=== PATIENT | male | born 2000 | race Hispanic/Latino ===

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

== ENCOUNTER 2018-02-02 01:28 | Emergency (ER) | payer SELFPAY ==
[~2018-02-02 01:28] MED LIST changes: +HALO2TAB PO; +OLAN7.5T9 PO
--- OUTSIDE RECORDS SUMMARY | 2018-02-02 01:32 | XMS REPORT ---
Author Author MACIE ADIS [address] Address [address] [place] [address] Care Team Providers Care Outpatient Admitting Clerk Name Role Phone ELICEO QUIJANOCARLIE Unavailable PROBLEMS Type Condition ICD9-CM Code [id number] Code Onset Dates Condition Status SNOMED Code Problem Schizophreniform disorder F20.81 Active 54481114 Problem Cannabis abuse F12.10 Active [id number] ALLERGIES No Information ENCOUNTERS Encounter Location Date Diagnosis [place] [id number] [address] Aug, [place] [address] [address] Aug, [facility] [address] [address] Jul, Schizophreniform disorder F20.81 [facility] [address] [address] Jul, Schizophreniform disorder F20.81 [facility] [address] [place] [id number] [place] [phone] Jul, [facility] [address] [place] [id number] [place] [id number] Jul, Schizophreniform disorder F20.81 and Cannabis abuse F12.10 [facility] [address] [address] 08 Jul, 2017 Schizophreniform disorder F20.81 and Cannabis abuse F12.10 [facility] [address] [place] [id number] [place] [id number] Jul, [facility] [address] [id number] Jul, [facility] [id number] [place] [phone] Jun, Schizophreniform disorder F20.81 and Cannabis abuse F12.10 [facility] [address] [place] [id number] [place] [phone] Feb, Schizophreniform disorder F20.81 and Cannabis abuse F12.10 [facility] [address] [address] Jan, Schizophreniform disorder F20.81 and Cannabis abuse F12.10 [facility] [address] [place] [id number] [place] [phone] Jan, Schizophreniform disorder F20.81 and Cannabis abuse F12.10 [facility] [address] [place] [id number] [place] [id number] Jun, Nipple pain N64.4 [facility] [address] [place] [id number] [place] [id number] Apr, Sports physical Z02.5 ; Exercise counseling Z71.89 and Dietary counseling Z71.3 [facility] [address] [place] [id number] [place] [id number] Feb, Abdominal cramping R10.9 and Nausea R11.0 [facility] [address] [place] [id number] [place] [phone] Jun, [facility] [address] [place] [id number] [place] [phone] Jan, [facility] [address] [place] [id number] [place] [phone] Jun, [place] [address] [address] Apr, [facility] [address] [place] [id number] [place] [phone] May, IMMUNIZATIONS No Known Immunizations SOCIAL HISTORY Never Assessed REASON FOR VISIT PALS IN-[place]ve[place] 156 PLAN OF CARE VITAL SIGNS MEDICATIONS Unknown Medications RESULTS No Results PROCEDURES No Known procedures INSTRUCTIONS MEDICATIONS ADMINISTERED No Known Medications MEDICAL (GENERAL) HISTORY Type Description Date Medical History Schizophreniform Disorder Medical History Psychosocial Factors, Occupational Related Medical History Suicidal Ideation Medical History Psychosis Medical History Hallucinations Medical History THC Use Disorder Medical History Intermittent Agitation Medical History [place] Hospitalization History [facility] Unit for Psychosis and SI 2016 Hospitalization History [facility] for psych stay 06/19/17-06/23/17 Hospitalization History [facility] 08/03/2017
--- OUTSIDE RECORDS SUMMARY | 2018-02-02 01:33 | XMS REPORT ---
Author Author RAVINDER KURT [facility] Address [address] [place] [address] Care Team Providers Care Rn Faculty Name Role Phone RAVINDERKURT Unavailable PROBLEMS Type Condition ICD9-CM Code KAI04-AO Code Onset Dates Condition Status SNOMED Code Problem Schizophreniform disorder F20.81 Active 12302443 Problem Cannabis abuse F12.10 Active 23018686 ALLERGIES Substance Reaction Event Type Date Status Penicillin G Sodium Unknown Drug Allergy Jul, Active ENCOUNTERS Encounter Location Date Diagnosis [facility] [id number] [place] [address] [phone] Aug, [facility] [id number] [place] [address] [phone] Aug, [facility] [id number] [place] [address] 78933- 3037 Jul, Schizophreniform disorder F20.81 [facility] [id number] [place] [address] [phone]- 3610 Jul, Schizophreniform disorder F20.81 [facility] [id number] [place] [address] 97740- [phone] Jul, [facility] [id number] [place] [address] 21023- 9562 Jul, Schizophreniform disorder F20.81 and Cannabis abuse F12.10 [facility] [address] 55414- 3482 08 Jul, 2017 Schizophreniform disorder F20.81 and Cannabis abuse F12.10 [facility] [id number] [place] [address] [phone] 2017 [facility] [id number] [place] [address] [phone] Jul, [facility] [id number] [place] [address] 13725- 1073 Jun, Schizophreniform disorder F20.81 and Cannabis abuse F12.10 [facility] [id number] [place] [address] 49206- 7827 Feb, Schizophreniform disorder F20.81 and Cannabis abuse F12.10 [facility] [id number] [place] [address] 31427- 3222 Jan, Schizophreniform disorder F20.81 and Cannabis abuse F12.10 [place] [address] [phone] Jan, Schizophreniform disorder F20.81 and Cannabis abuse F12.10 [facility] [id number] [place] [address] [phone] Jun, Nipple pain N64.4 [facility] [id number] [place] [address] [id number] Apr, Sports physical Z02.5 ; Exercise counseling Z71.89 and Dietary counseling Z71.3 [facility] [id number] [place] [address] [phone] Feb, Abdominal cramping R10.9 and Nausea R11.0 [facility] [id number] [place] [address] [phone]- [phone] Jun, [facility] [id number] [place] [address] [phone]- [phone] Jan, [facility] [id number] [place] [address] [phone]- [phone] Jun, [facility] [id number] [place] [address] [phone]- [phone] Apr, [facility] [id number] [place] [address] [phone]- [phone] May, IMMUNIZATIONS Vaccine Route Administration Date Status INVEGA (PT'S OWN) IM Intramuscular Aug 14, 2017 Administered SOCIAL HISTORY Never Assessed REASON FOR VISIT f/u PLAN OF CARE Activity Details Follow Up 1 Week Reason: f/u VITAL SIGNS Height 65 in 2017-08-14 Weight 156.9 lbs 2017-08-14 Heart Rate 64 bpm 2017-08-14 Respiratory Rate 20 2017-08-14 BMI 26.11 kg/m2 2017-08-14 Blood pressure systolic 130 mmHg 2017-08-14 Blood pressure diastolic 78 mmHg 2017-08-14 MEDICATIONS Medication Instructions Dosage Frequency Start Date End Date Duration Status Invega Sustenna 156 MG/ML Intramuscular one time 1.5 ml Jul, 30 day(s) Active RESULTS No Results PROCEDURES Procedure Date Ordered Result Body Site INVEGA (PT'S OWN) Aug 14, 2017 THER/PROPH/DIAG INJ, SC/IM Aug 14, 2017 INSTRUCTIONS MEDICATIONS ADMINISTERED No Known Medications MEDICAL (GENERAL) HISTORY Type Description Date Medical History Schizophreniform Disorder Medical History Psychosocial Factors, Occupational Related Medical History Suicidal Ideation Medical History Psychosis Medical History Hallucinations Medical History THC Use Disorder Medical History Intermittent Agitation Medical History [place] Hospitalization History [facility] Unit for Psych[facility] and SI 2016 [facility]17 Hospitalization History [facility] 08/03/2017
--- OUTSIDE RECORDS SUMMARY | 2018-02-02 01:33 | XMS REPORT ---
Author Author RAVINDER KURT [facility] Address [address] [place] [address] Care Team Providers Care Security Team Lead Name Role Phone RAVINDERKURT Unavailable PROBLEMS Type Condition ICD9-CM Code AJC90-VR Code Onset Dates Condition Status SNOMED Code Problem Schizophreniform disorder F20.81 Active 89126579 Problem Cannabis abuse F12.10 Active 87001611 ALLERGIES Substance Reaction Event Type Date Status Penicillin G Sodium Unknown Drug Allergy Jun, Active ENCOUNTERS Encounter Location Date Diagnosis [facility] [id number] [place] [address] 23819- 5865 Aug, [facility] [id number] [place] [address] 64318- [phone] Aug, [facility] [id number] [place] [address] 02427- 8103 Jul, Schizophreniform disorder F20.81 [facility] [id number] [place] [address] 66304- 6471 Jul, Schizophreniform disorder F20.81 [facility] [id number] [place] [address] 89497- [phone] Jul, [facility] [id number] [place] [address] 87507- 4343 Jul, Schizophreniform disorder F20.81 and Cannabis abuse F12.10 [facility] [id number] [place] [address] 50145- [phone] 08 Jul, 2017 Schizophreniform disorder F20.81 and Cannabis abuse F12.10 [facility] [id number] [place] [address] [id number] 2017 [facility] [place] [id number] [place] [address] [phone] Jul, [facility] [id number] [place] [address] 27542- 5802 Jun, Schizophreniform disorder F20.81 and Cannabis abuse F12.10 [facility] [id number] [place] [address] 21099- 2064 Feb, Schizophreniform disorder F20.81 and Cannabis abuse F12.10 [facility] [id number] [place] [address] 12102- 8985 Jan, Schizophreniform disorder F20.81 and Cannabis abuse F12.10 [facility] [address] 38385- 8776 Jan, Schizophreniform disorder F20.81 and Cannabis abuse F12.10 [facility] [address] [phone] Jun, Nipple pain N64.4 [facility] [id number] [place] [address] [phone] Apr, Sports physical Z02.5 ; Exercise counseling Z71.89 and Dietary counseling Z71.3 [facility] [id number] [place] [address] [phone] Feb, Abdominal cramping R10.9 and Nausea R11.0 [facility] [id number] [place] [address] 68394- 7374 Jun, [facility] [id number] [place] [address] [phone]- [phone] Jan, [facility] [id number] [place] [address] [phone]- [phone] Jun, [facility] [id number] [place] [address] 59425- [phone] Apr, [facility] [id number] [place] [address] [phone]- [phone] 18 Dec, 2003 IMMUNIZATIONS No Known Immunizations SOCIAL HISTORY Never Assessed REASON FOR VISIT f/u Dylan PLAN OF CARE Activity Details Follow Up 1 Week Reason: f/u VITAL SIGNS Height 65 in 2017-07-06 Weight 155.6 lbs 2017-07-06 Heart Rate 80 bpm 2017-07-06 Respiratory Rate 20 2017-07-06 BMI 25.89 kg/m2 2017-07-06 Blood pressure systolic 120 mmHg 2017-07-06 Blood pressure diastolic 80 mmHg 2017-07-06 MEDICATIONS Medication Instructions Dosage Frequency Start Date End Date Duration Status Risperidone 2 MG Orally at bedtime 1 tablet Active RESULTS No Results PROCEDURES No Known procedures INSTRUCTIONS MEDICATIONS ADMINISTERED No Known Medications MEDICAL (GENERAL) HISTORY Type Description Date Medical History Schizophreniform Disorder Medical History Psychosocial Factors, Occupational Related Medical History Suicidal Ideation Medical History Psychosis Medical History Hallucinations Medical History THC Use Disorder Medical History Intermittent Agitation Medical History [place] Hospitalization History [facility] Unit for Psychosis and SI 2016 Hospitalization History [facility] for psych stay 06/19/17-06/23/17 Hospitalization History [facility] 08/03/2017
--- OUTSIDE RECORDS SUMMARY | 2018-02-02 01:33 | XMS REPORT ---
Author Author ADIS QUIJANO [facility] Address [address] [place] [address] Care Team Providers Care Quality Compliance Manager Name Role Phone ELICEO QUIJANOCARLIE Unavailable PROBLEMS Type Condition ICD9-CM Code LAH91-CO Code Onset Dates Condition Status SNOMED Code Problem Schizophreniform disorder F20.81 Active 62990010 Problem Cannabis abuse F12.10 Active 11970926 ALLERGIES No Information ENCOUNTERS Encounter Location Date Diagnosis [facility] [id number] [place] [address] [phone]- [phone] Aug, [facility] [address] 01160- 1855 Aug, [facility] [address] 58060- 0154 Jul, Schizophreniform disorder F20.81 [facility] [address] 36169- 3721 Jul, Schizophreniform disorder F20.81 [facility] [id number] [place] [address] 09207- 5934 Jul, [facility] [id number] [place] [address] 02132- 2023 Jul, Schizophreniform disorder F20.81 and Cannabis abuse F12.10 [facility] [address] 42609- 3601 08 Jul, 2017 Schizophreniform disorder F20.81 and Cannabis abuse F12.10 [facility] [address] [id number] Jul, [facility] [address] [id number] Jul, [facility] [id number] [place] [address] 33742- 2941 Jun, Schizophreniform disorder F20.81 and Cannabis abuse F12.10 [facility] [id number] [place] [address] 40985- 2976 Feb, Schizophreniform disorder F20.81 and Cannabis abuse F12.10 [facility] [address] 30686- 0753 Jan, Schizophreniform disorder F20.81 and Cannabis abuse F12.10 [facility] [id number] [place] [address] 14969- 8233 Jan, Schizophreniform disorder F20.81 and Cannabis abuse F12.10 [facility] [place] [id number] [place] [address] [phone] Jun, Nipple pain N64.4 [facility] [place] [address] [id number] Apr, Sports physical Z02.5 ; Exercise counseling Z71.89 and Dietary counseling Z71.3 [facility] [place] [id number] [place] [address] [phone] Feb, Abdominal cramping R10.9 and Nausea R11.0 [facility] [id number] [place] [address] 94448- [phone] Jun, [facility] [id number] [place] [address] 60434- 2240 Jan, [facility] [id number] [place] [address] 34777- [phone] Jun, [place] [address] 86261- 4824 Apr, [facility] [id number] [place] [address] 84306- [phone] May, IMMUNIZATIONS No Known Immunizations SOCIAL HISTORY Never Assessed REASON FOR VISIT PALS IN-Invega PLAN OF CARE VITAL SIGNS MEDICATIONS Unknown Medications RESULTS No Results PROCEDURES No Known procedures INSTRUCTIONS MEDICATIONS ADMINISTERED No Known Medications MEDICAL (GENERAL) HISTORY Type Description Date Medical History Schizophreniform Disorder Medical History Psychosocial Factors, Occupational Related Medical History Suicidal Ideation Medical History Psychosis Medical History Hallucinations Medical History THC Use Disorder Medical History Intermittent Agitation Medical History [place] Hospitalization History [facility] Unit for Psychosis and SI 2016 Hospitalization History [facility] for psych stay 06/19/17-06/23/17 Hospitalization History [facility] 08/03/2017
--- OUTSIDE RECORDS SUMMARY | 2018-02-02 01:33 | XMS REPORT ---
Author Author ADIS QUIJANO [facility] Address [address] [place] [address] Care Team Providers Care Floor Cashier Name Role Phone ELICEO QUIJANOCARLIE Unavailable PROBLEMS Type Condition ICD9-CM Code UAC54-AR Code Onset Dates Condition Status SNOMED Code Problem Schizophreniform disorder F20.81 Active 84194246 Problem Cannabis abuse F12.10 Active 42028798 ALLERGIES No Information ENCOUNTERS Encounter Location Date Diagnosis [facility] [id number] [place] [address] [phone]- [phone] Aug, [facility] [address] 05770- 7897 Aug, [facility] [address] 15836- 6288 Jul, Schizophreniform disorder F20.81 [facility] [address] 18740- 7686 Jul, Schizophreniform disorder F20.81 [facility] [id number] [place] [address] 72766- 5770 Jul, [facility] [id number] [place] [address] 79020- 6059 Jul, Schizophreniform disorder F20.81 and Cannabis abuse F12.10 [facility] [id number] [place] [address] 40637- 6134 08 Jul, 2017 Schizophreniform disorder F20.81 and Cannabis abuse F12.10 [facility] [address] [id number] Jul, [facility] [address] [id number] Jul, [facility] [address] [place] [address] 74948- 5176 Jun, Schizophreniform disorder F20.81 and Cannabis abuse F12.10 [facility] [id number] [place] [address] 70078- 5816 Feb, Schizophreniform disorder F20.81 and Cannabis abuse F12.10 [facility] [address] 88691- 6820 Jan, Schizophreniform disorder F20.81 and Cannabis abuse F12.10 [facility] [id number] [place] [address] 44750- 9679 Jan, Schizophreniform disorder F20.81 and Cannabis abuse F12.10 [facility] [id number] [place] [address] [phone] Jun, Nipple pain N64.4 [facility] [address] [id number] Apr, Sports physical Z02.5 ; Exercise counseling Z71.89 and Dietary counseling Z71.3 [facility] [id number] [place] [address] [phone] Feb, Abdominal cramping R10.9 and Nausea R11.0 [place] [id number] [place] [address] 43380- 7000 Jun, [facility] [id number] [place] [address] 73542- 3944 Jan, [facility] [id number] [place] [address] 98406- 3116 Jun, [place] [address] 59182- 7570 Apr, [place] [id number] [place] [address] 96799- 7228 May, IMMUNIZATIONS No Known Immunizations SOCIAL HISTORY Never Assessed REASON FOR VISIT PALS-invega PLAN OF CARE VITAL SIGNS MEDICATIONS Medication Instructions Dosage Frequency Start Date End Date Duration Status Unique Sustenna 156 MG/ML Intramuscular once monthly 1.5 ml Jul, 90 days Active RESULTS No Results PROCEDURES No Known procedures INSTRUCTIONS MEDICATIONS ADMINISTERED No Known Medications MEDICAL (GENERAL) HISTORY Type Description Date Medical History Schizophreniform Disorder Medical History Psychosocial Factors, Occupational Related Medical History Suicidal Ideation Medical History Psychosis Medical History Hallucinations Medical History THC Use Disorder Medical History Intermittent Agitation Medical History [place] Hospitalization History [facility] Unit for Psychosis and SI 2016 Hospitalization History [facility] for psych stay 06/19/17-06/23/17 Hospitalization History [facility] 08/03/2017
--- OUTSIDE RECORDS SUMMARY | 2018-02-02 01:33 | XMS REPORT ---
Author Author RAVINDER KURT [facility] Address [address] [place] [address] Care Team Providers Care Convertible Sofa Bedspring Tester Name Role Phone RAVINDERKURT Unavailable PROBLEMS Type Condition ICD9-CM Code MPN50-UZ Code Onset Dates Condition Status SNOMED Code Problem Schizophreniform disorder F20.81 Active 10481607 Problem Cannabis abuse F12.10 Active 99107581 ALLERGIES Substance Reaction Event Type Date Status Penicillin G Sodium Unknown Drug Allergy Feb, Active ENCOUNTERS Encounter Location Date Diagnosis [facility] [id number] [place] [address] 01981- 0606 Aug, [facility] [id number] [place] [address] 77912- 1150 Aug, [facility] [id number] [place] [address] 07668- 5164 Jul, Schizophreniform disorder F20.81 [facility] [id number] [place] [address] 46637- 3876 Jul, Schizophreniform disorder F20.81 [facility] [id number] [place] [address] 47248- 2085 Jul, [facility] [id number] [place] [address] 67985- 0548 Jul, Schizophreniform disorder F20.81 and Cannabis abuse F12.10 [facility] [address] 31799- 6579 08 Jul, 2017 Schizophreniform disorder F20.81 and Cannabis abuse F12.10 [facility] [id number] [place] [address] [id number] 2017 [facility] [id number] [place] [address] [phone] Jul, [facility] [id number] [place] [address] 99077- 7660 Jun, Schizophreniform disorder F20.81 and Cannabis abuse F12.10 [facility] [id number] [place] [address] 37927- 1503 Feb, Schizophreniform disorder F20.81 and Cannabis abuse F12.10 [facility] [id number] [place] [address] 35220- 4098 Jan, Schizophreniform disorder F20.81 and Cannabis abuse F12.10 [facility] [address] 39184- 6587 Jan, Schizophreniform disorder F20.81 and Cannabis abuse F12.10 [facility] [address] [id number] Jun, Nipple pain N64.4 [facility] [id number] [place] [address] [phone] Apr, Sports physical Z02.5 ; Exercise counseling Z71.89 and Dietary counseling Z71.3 [facility] [id number] [place] [address] [id number] Feb, Abdominal cramping R10.9 and Nausea R11.0 [facility] [id number] [place] [address] 68684- 8518 Jun, [facility] [id number] [place] [address] 29951- [phone] Jan, [facility] [id number] [place] [address] 32347- 4758 Jun, [facility] [id number] [place] [address] 90891- 6628 Apr, [facility] [id number] [place] [address] 56089- [phone] May, IMMUNIZATIONS No Known Immunizations SOCIAL HISTORY Never Assessed REASON FOR VISIT Psychiatric f/u TylerJoséMary pt has stopped his medications for 2 weeks. PLAN OF CARE Activity Details Follow Up 1 Week Reason: f/u VITAL SIGNS Height 65 in 2017-02-27 Weight 171.5 lbs 2017-02-27 Heart Rate 72 bpm 2017-02-27 Respiratory Rate 20 2017-02-27 BMI 28.54 kg/m2 2017-02-27 Blood pressure systolic 110 mmHg 2017-02-27 Blood pressure diastolic 72 mmHg 2017-02-27 MEDICATIONS Medication Instructions Dosage Frequency Start Date End Date Duration Status Zyprexa 7.5 MG Orally Once a day at bedtime 1 tablet Jan, Active RESULTS No Results PROCEDURES No Known procedures INSTRUCTIONS MEDICATIONS ADMINISTERED No Known Medications MEDICAL (GENERAL) HISTORY Type Description Date Medical History Schizophreniform Disorder Medical History Psychosocial Factors, Occupational Related Medical History Suicidal Ideation Medical History Psychosis Medical History Hallucinations Medical History THC Use Disorder Medical History Intermittent Agitation Medical History [place] Hospitalization History [facility] Unit for Psychosis and SI 2016 Hospitalization History [facility] for psych stay 06/19/17-06/23/17 Hospitalization History [facility] 08/03/2017
--- OUTSIDE RECORDS SUMMARY | 2018-02-02 01:33 | XMS REPORT ---
Author Author RAVINDER KURT [facility] Address [address] [place] [address] Care Team Providers Care Sack Filler Name Role Phone RAVINDERKURT Unavailable PROBLEMS Type Condition ICD9-CM Code NOM82-RW Code Onset Dates Condition Status SNOMED Code Problem Schizophreniform disorder F20.81 Active 93234128 Problem Cannabis abuse F12.10 Active 91820606 ALLERGIES Substance Reaction Event Type Date Status Penicillin G Sodium Unknown Drug Allergy Jul, Active ENCOUNTERS Encounter Location Date Diagnosis [facility] [id number] [place] [address] [phone]- [phone] Aug, [facility] [id number] [place] [address] 48274- 2515 Aug, [facility] [id number] [place] [address] 70023- 0554 Jul, Schizophreniform disorder F20.81 [facility] [id number] [place] [address] 31758- 7581 Jul, Schizophreniform disorder F20.81 [facility] [id number] [place] [address] 29705- 6970 Jul, [facility] [id number] [place] [address] 21838- 2723 Jul, Schizophreniform disorder F20.81 and Cannabis abuse F12.10 [facility] [address] 56284- 7499 Jul, Schizophreniform disorder F20.81 and Cannabis abuse F12.10 [facility] [place] [id number] [place] [address] [phone] Jul, [facility] [place] [id number] [place] [address] [phone] Jul, [facility] [id number] [place] [address] 28882- [phone] Jun, Schizophreniform disorder F20.81 and Cannabis abuse F12.10 [facility] [id number] [place] [address] [phone] Feb, Schizophreniform disorder F20.81 and Cannabis abuse F12.10 [facility] [id number] [place] [address] 88410- 6080 Jan, Schizophreniform disorder F20.81 and Cannabis abuse F12.10 [facility] [address] [phone] Jan, Schizophreniform disorder F20.81 and Cannabis abuse F12.10 [facility] [address] [id number] Jun, Nipple pain N64.4 [facility] [id number] [place] [address] [phone] Apr, Sports physical Z02.5 ; Exercise counseling Z71.89 and Dietary counseling Z71.3 [facility] [id number] [place] [address] [phone] Feb, Abdominal cramping R10.9 and Nausea R11.0 [facility] [id number] [place] [address] 35762- [phone] Jun, [facility] [id number] [place] [address] 11460- [phone] Jan, [facility] [id number] [place] [address] 11993- 7046 Jun, [facility] [id number] [place] [address] [phone]- [phone] Apr, [facility] [id number] [place] [address] 44636- 8838 May, IMMUNIZATIONS No Known Immunizations SOCIAL HISTORY Never Assessed REASON FOR VISIT f/u PLAN OF CARE Activity Details Follow Up 1 Week Reason: f/u VITAL SIGNS Height 65 in 2017-08-06 Weight 161.6 lbs 2017-08-06 Heart Rate 72 bpm 2017-08-06 Respiratory Rate 20 2017-08-06 BMI 26.89 kg/m2 2017-08-06 Blood pressure systolic 110 mmHg 2017-08-06 Blood pressure diastolic 60 mmHg 2017-08-06 MEDICATIONS Medication Instructions Dosage Frequency Start Date End Date Duration Status Invega 3 MG Orally Once a day at bedtime 1 tablet Jul, 07 days Active RESULTS No Results PROCEDURES No Known procedures INSTRUCTIONS MEDICATIONS ADMINISTERED No Known Medications MEDICAL (GENERAL) HISTORY Type Description Date Medical History Schizophreniform Disorder Medical History Psychosocial Factors, Occupational Related Medical History Suicidal Ideation Medical History Psychosis Medical History Hallucinations Medical History THC Use Disorder Medical History Intermittent Agitation Medical History [place] Hospitalization History [facility] Unit for Psychosis and SI 2016 Hospitalization History [facility] for psych stay 06/19/17-06/23/17 Hospitalization History [facility] 08/03/2017
--- OUTSIDE RECORDS SUMMARY | 2018-02-02 01:33 | XMS REPORT ---
Author Author RAVINDER KURT [facility] Address [address] [place] [address] Care Team Providers Care Mold Maker Plastic Molds Name Role Phone RAVINDERKURT Unavailable PROBLEMS Type Condition ICD9-CM Code AMS20-CP Code Onset Dates Condition Status SNOMED Code Problem Schizophreniform disorder F20.81 Active 13852917 Problem Cannabis abuse F12.10 Active 02095937 ALLERGIES Substance Reaction Event Type Date Status Penicillin G Sodium Unknown Drug Allergy Jan, Active ENCOUNTERS Encounter Location Date Diagnosis [facility] [id number] [place] [address] 53307- [phone] Aug, [facility] [id number] [place] [address] 06891- [phone] Aug, [facility] [id number] [place] [address] 71796- [phone] Jul, Schizophreniform disorder F20.81 [facility] [id number] [place] [address] 04344- 5447 Jul, Schizophreniform disorder F20.81 [facility] [id number] [place] [address] 60058- 3448 Jul, [facility] [id number] [place] [address] 68795- 7613 Jul, Schizophreniform disorder F20.81 and Cannabis abuse F12.10 [facility] [address] 34710- [phone] 08 Jul, 2017 Schizophreniform disorder F20.81 and Cannabis abuse F12.10 [facility] [id number] [place] [address] [id number] 2017 [facility] [id number] [place] [address] [phone] Jul, [facility] [id number] [place] [address] 97375- 4935 Jun, Schizophreniform disorder F20.81 and Cannabis abuse F12.10 [facility] [id number] [place] [address] 91148- 6922 Feb, Schizophreniform disorder F20.81 and Cannabis abuse F12.10 [facility] [id number] [place] [address] 50630- 0671 Jan, Schizophreniform disorder F20.81 and Cannabis abuse F12.10 [facility] [address] 31247- 4932 Jan, Schizophreniform disorder F20.81 and Cannabis abuse F12.10 [facility] [address] [phone] Jun, Nipple pain N64.4 [facility] [id number] [place] [address] [phone] Apr, Sports physical Z02.5 ; Exercise counseling Z71.89 and Dietary counseling Z71.3 [facility] [id number] [place] [address] [phone] Feb, Abdominal cramping R10.9 and Nausea R11.0 [facility] [id number] [place] [address] 30671- 1327 Jun, [facility] [id number] [place] [address] 07497- 0869 Jan, [facility] [id number] [place] [address] 27450- 2782 Jun, [facility] [id number] [place] [address] 15829- [phone] Apr, [facility] [id number] [place] [address] [phone] May, IMMUNIZATIONS No Known Immunizations SOCIAL HISTORY Never Assessed REASON FOR VISIT intake Dylan, Labs done at [facility] 12/2016 B12, TSH, RPR, CBC, CMP, EKG all within normal limits. PLAN OF CARE Activity Details Follow Up 2 Weeks Reason: f/u VITAL SIGNS Height 65 in 2017-01-30 Weight 158 lbs 2017-01-30 Heart Rate 68 bpm 2017-01-30 Respiratory Rate 18 2017-01-30 BMI 26.29 kg/m2 2017-01-30 Blood pressure systolic 112 mmHg 2017-01-30 Blood pressure diastolic 80 mmHg 2017-01-30 MEDICATIONS Medication Instructions Dosage Frequency Start Date End Date Duration Status Zyprexa 5 mg Orally at bedtime 1 tablet Jan, 30 day(s) Active Haloperidol 2 MG Orally twice a day 1 tablet 12h 30 days Active Benztropine Mesylate 1 MG Orally twice a day 1 tablet 12h 30 days Active RESULTS No Results PROCEDURES No Known procedures INSTRUCTIONS MEDICATIONS ADMINISTERED No Known Medications MEDICAL (GENERAL) HISTORY Type Description Date Medical History Schizophreniform Disorder Medical History Psychosocial Factors, Occupational Related Medical History Suicidal Ideation Medical History Psychosis Medical History Hallucinations Medical History THC Use Disorder Medical History Intermittent Agitation Medical History [place] Hospitalization History [facility] Unit for Psychosis and SI 2016 Hospitalization History [facility] for psych stay 06/19/17-06/23/17 Hospitalization History [facility] 08/03/2017
--- OUTSIDE RECORDS SUMMARY | 2018-02-02 01:33 | XMS REPORT ---
Author Author RAVINDER KURT [facility] Address [address] [place] [address] Care Team Providers Care Jig Borer Name Role Phone RAVINDERKURT Unavailable PROBLEMS Type Condition ICD9-CM Code HVO21-VJ Code Onset Dates Condition Status SNOMED Code Problem Schizophreniform disorder F20.81 Active 40981740 Problem Cannabis abuse F12.10 Active 20421839 ALLERGIES No Information ENCOUNTERS Encounter Location Date Diagnosis [facility] [id number] [place] [address] 11020- 2105 Aug, [facility] [address] 61651- 8615 Aug, [facility] [id number] [place] [address] 13168- 2079 Jul, Schizophreniform disorder F20.81 [facility] [address] 26354- 3977 Jul, Schizophreniform disorder F20.81 [facility] [id number] [place] [address] 87809- 3557 Jul, [facility] [id number] [place] [address] 54325- 6498 Jul, Schizophreniform disorder F20.81 and Cannabis abuse F12.10 [facility] [id number] [place] [address] 42001- 1567 08 Jul, 2017 Schizophreniform disorder F20.81 and Cannabis abuse F12.10 [facility] [id number] [place] [address] [id number] 2017 [facility] [address] [phone] Jul, [facility] [address] [place] [address] 52432- 4468 Jun, Schizophreniform disorder F20.81 and Cannabis abuse F12.10 [facility] [id number] [place] [address] 06887- 1536 Feb, Schizophreniform disorder F20.81 and Cannabis abuse F12.10 [facility] [id number] [place] [address] 42021- 4651 Jan, Schizophreniform disorder F20.81 and Cannabis abuse F12.10 [facility] [id number] [place] [address] 31610- 1573 Jan, Schizophreniform disorder F20.81 and Cannabis abuse F12.10 [facility] [id number] [place] [address] [phone] Jun, Nipple pain N64.4 [facility] [address] [phone] Apr, Sports physical Z02.5 ; Exercise counseling Z71.89 and Dietary counseling Z71.3 [facility] [id number] [place] [address] [phone] Feb, Abdominal cramping R10.9 and Nausea R11.0 [facility] [id number] [place] [address] 57687- 8189 Jun, [facility] [id number] [place] [address] 90913- 5416 Jan, [facility] [id number] [place] [address] 13113- 2674 Jun, [place] [facility] [address] 11971- 1598 Apr, [facility] [id number] [place] [address] 45777- 7421 May, IMMUNIZATIONS No Known Immunizations SOCIAL HISTORY Never Assessed REASON FOR VISIT PALS PLAN OF CARE VITAL SIGNS MEDICATIONS Unknown Medications RESULTS No Results PROCEDURES No Known procedures INSTRUCTIONS MEDICATIONS ADMINISTERED No Known Medications MEDICAL (GENERAL) HISTORY Type Description Date Medical History Schizophreniform Disorder Medical History Psychosocial Factors, Occupational Related Medical History Suicidal Ideation Medical History Psychosis Medical History Hallucinations Medical History THC Use Disorder Medical History Intermittent Agitation Medical History [place] Hospitalization History [facility] Unit for Psychosis and SI 2016 Hospitalization History [facility] for psych stay 06/19/17-06/23/17 Hospitalization History [facility] 08/03/2017
--- OUTSIDE RECORDS SUMMARY | 2018-02-02 01:33 | XMS REPORT ---
Author Author RAVINDER KURT [facility] Address [address] [place] [address] Care Team Providers Care Carver Hand Name Role Phone RAVINDERKURT Unavailable PROBLEMS Type Condition ICD9-CM Code OIF18-DC Code Onset Dates Condition Status SNOMED Code Problem Schizophreniform disorder F20.81 Active 88138423 Problem Cannabis abuse F12.10 Active 50427345 ALLERGIES No Information ENCOUNTERS Encounter Location Date Diagnosis [facility] [id number] [place] [address] 12982- [phone] Aug, [facility] [address] 02268- 5065 Aug, [facility] [id number] [place] [address] 60618- 5694 Jul, Schizophreniform disorder F20.81 [facility] [address] 52708- 0968 Jul, Schizophreniform disorder F20.81 [facility] [id number] [place] [address] 61455- 4467 Jul, [facility] [id number] [place] [address] 41715- 2671 Jul, Schizophreniform disorder F20.81 and Cannabis abuse F12.10 [facility] [id number] [place] [address] 87411- [phone] 08 Jul, 2017 Schizophreniform disorder F20.81 and Cannabis abuse F12.10 [facility] [id number] [place] [address] [id number] Jul, [facility] [address] [id number] Jul, [facility] [address] [place] [address] 29474- 3426 Jun, Schizophreniform disorder F20.81 and Cannabis abuse F12.10 [facility] [id number] [place] [address] 19370- 2546 Feb, Schizophreniform disorder F20.81 and Cannabis abuse F12.10 [facility] [address] 95626- 9046 Jan, Schizophreniform disorder F20.81 and Cannabis abuse F12.10 [facility] [id number] [place] [address] 83717- 5776 Jan, Schizophreniform disorder F20.81 and Cannabis abuse F12.10 [facility] [id number] [place] [address] [phone] Jun, Nipple pain N64.4 [facility] [address] [id number] Apr, Sports physical Z02.5 ; Exercise counseling Z71.89 and Dietary counseling Z71.3 [facility] [address] [id number] Feb, Abdominal cramping R10.9 and Nausea R11.0 [facility] [id number] [place] [address] 26329- 9716 Jun, [facility] [id number] [place] [address] 20106- 5776 Jan, [facility] [id number] [place] [address] 55258- 0812 Jun, [place] [facility] [address] 03012- 6876 Apr, [facility] [id number] [place] [address] 37572- 9426 May, IMMUNIZATIONS Vaccine Route Administration Date Status INVEGA (PT'S OWN) IM Intramuscular Aug 21, 2017 Administered SOCIAL HISTORY Never Assessed REASON FOR VISIT Injection-Libra HAYNES PLAN OF CARE Activity Details Follow Up 4 Weeks Reason: VITAL SIGNS MEDICATIONS Unknown Medications RESULTS No Results PROCEDURES Procedure Date Ordered Result Body Site INVEGA (PT'S OWN) Aug 21, 2017 THER/PROPH/DIAG INJ, SC/IM Aug 21, 2017 INSTRUCTIONS MEDICATIONS ADMINISTERED No Known Medications MEDICAL (GENERAL) HISTORY Type Description Date Medical History Schizophreniform Disorder Medical History Psychosocial Factors, Occupational Related Medical History Suicidal Ideation Medical History Psychosis Medical History Hallucinations Medical History THC Use Disorder Medical History Intermittent Agitation Medical History [place] Hospitalization History [facility] Unit for Psychosis and SI 2016 Hospitalization History [facility] for psych stay 06/19/17-06/23/17 Hospitalization History [facility] 08/03/2017
--- OUTSIDE RECORDS SUMMARY | 2018-02-02 01:33 | XMS REPORT ---
Author Author WALKER ZARAGOZA Organization [facility] Address [address] [place] [address] Care Team Providers Care Internal Combustion Engine Inspector Name Role Phone WALKER ZARAGOZA Unavailable PROBLEMS Type Condition ICD9-CM Code OQL26-CY Code Onset Dates Condition Status SNOMED Code Problem Schizophreniform disorder F20.81 Active 83860173 Problem Cannabis abuse F12.10 Active 58752652 ALLERGIES No Information ENCOUNTERS Encounter Location Date Diagnosis [facility] [id number] [place] [address] 95521- 3943 Aug, [facility] [address] 27189- 3299 Aug, [facility] [id number] [place] [address] 07758- 1141 Jul, Schizophreniform disorder F20.81 [facility] [address] 36769- 9693 Jul, Schizophreniform disorder F20.81 [facility] [id number] [place] [address] 70008- 2677 Jul, [facility] [id number] [place] [address] 83155- 9717 Jul, Schizophreniform disorder F20.81 and Cannabis abuse F12.10 [facility] [id number] [place] [address] 31476- 6165 08 Jul, 2017 Schizophreniform disorder F20.81 and Cannabis abuse F12.10 [facility] [id number] [place] [address] [phone] Jul, [facility] [address] [phone] Jul, [facility] [address] [place] [address] 10117- 8786 Jun, Schizophreniform disorder F20.81 and Cannabis abuse F12.10 [facility] [id number] [place] [address] 59783- 1746 Feb, Schizophreniform disorder F20.81 and Cannabis abuse F12.10 [facility] [address] 46293- 2983 Jan, Schizophreniform disorder F20.81 and Cannabis abuse F12.10 [facility] [id number] [place] [address] 34588- 3191 Jan, Schizophreniform disorder F20.81 and Cannabis abuse F12.10 [facility] [id number] [place] [address] [phone] Jun, Nipple pain N64.4 [facility] [address] [id number] Apr, Sports physical Z02.5 ; Exercise counseling Z71.89 and Dietary counseling Z71.3 [facility] [id number] [place] [address] [phone] Feb, Abdominal cramping R10.9 and Nausea R11.0 [facility] [id number] [place] [address] 87269- 8914 Jun, [facility] [id number] [place] [address] 05330- 5751 Jan, [facility] [id number] [place] [address] 33343- 4353 Jun, [facility] [address] 99371- 5006 Apr, [facility] [id number] [place] [address] 47690- 5233 May, IMMUNIZATIONS No Known Immunizations SOCIAL HISTORY Never Assessed REASON FOR VISIT PLAN OF CARE VITAL SIGNS MEDICATIONS Unknown Medications RESULTS No Results PROCEDURES No Known procedures INSTRUCTIONS MEDICATIONS ADMINISTERED No Known Medications MEDICAL (GENERAL) HISTORY Type Description Date Medical History Schizophreniform Disorder Medical History Psychosocial Factors, Occupational Related Medical History Suicidal Ideation Medical History Psychosis Medical History Hallucinations Medical History THC Use Disorder Medical History Intermittent Agitation Medical History [place] Hospitalization History [facility] Unit for Psychosis and SI 2016 Hospitalization History [facility] for psych stay 06/19/17-06/23/17 Hospitalization History [facility] 08/03/2017
--- OUTSIDE RECORDS SUMMARY | 2018-02-02 01:34 | XMS REPORT | Continuity of Care Document ---
Demographics Preferred Language Unknown Marital Status Unknown Amish Affiliation Unknown Race Unknown Ethnic Group Unknown Author Author [facility] Address Unknown Phone Unavailable Allergies Active Description Code Type Severity Reaction Onset Reported/Identified Relationship to Patient Clinical Status Yes Penicillins [id number] Drug Allergy Mild N/A 12/19/2009 Yes Penicillins Drug Allergy 03/05/2011 Medications There is no data. Problems Date Dx Coded Attending Type Code Diagnosis Diagnosed By 07/04/2008 380.10 Otitis Externa Unspecified 07/04/2008 382.00 Otitis Media Acute Without Spontaneous Rupture Eardrum 03/05/2011 V20.2 WELL CHILD 06/10/2017 HELENA IZQUIERDO MD T Ot F12.90 CANNABIS USE, UNSPECIFIED, UNCOMPLICATED 06/10/2017 HELENA IZQUIERDO MD T Ot F32.9 MAJOR DEPRESSIVE DISORDER, SINGLE EPISOD 06/10/2017 HELENA IZQUIERDO MD T Ot M62.82 RHABDOMYOLYSIS 06/10/2017 HELENA IZQUIERDO MD T Ot R10.30 LOWER ABDOMINAL PAIN, UNSPECIFIED 06/10/2017 HELENA IZQUIERDO MD T Ot Z72.51 HIGH RISK HETEROSEXUAL BEHAVIOR 06/12/2017 HELENA IZQUIERDO MD T Ot F12.90 CANNABIS USE, UNSPECIFIED, UNCOMPLICATED 06/12/2017 HELENA IZQUIERDO MD T Ot F32.9 MAJOR DEPRESSIVE DISORDER, SINGLE EPISOD 06/12/2017 HELENA IZQUIERDO MD T Ot M62.82 RHABDOMYOLYSIS 06/12/2017 HELENA IZQUIERDO MD T Ot R10.30 LOWER ABDOMINAL PAIN, UNSPECIFIED 06/12/2017 HELENA IZQUIERDO MD T Ot Z72.51 HIGH RISK HETEROSEXUAL BEHAVIOR 08/04/2017 WALKER BERNAL MD Ot 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 Results Test Result Range Complete urinalysis with reflex to culture - 06/10/17 08:40 Urine color determination YELLOW NRG Urine clarity determination CLEAR NRG Urine pH measurement by test strip 6 5-9 Specific gravity of urine by test strip 1.025 1.016- 1.022 Urine protein assay by test strip, semi-quantitative NEGATIVE NEGATIVE Urine glucose detection by automated test strip NEGATIVE NEGATIVE Erythrocytes detection in urine sediment by light microscopy NEGATIVE NEGATIVE Urine ketones detection by automated test strip 1+ NEGATIVE Urine nitrite detection by test strip NEGATIVE NEGATIVE Urine total bilirubin detection by test strip NEGATIVE NEGATIVE Urine urobilinogen measurement by automated test strip (mass/volume) NORMAL NORMAL Urine leukocyte esterase detection by dipstick NEGATIVE NEGATIVE Automated urine sediment erythrocyte count by microscopy (number/high power field) NONE NRG Automated urine sediment leukocyte count by microscopy (number/high power field ) RARE NRG Bacteria detection in urine sediment by light microscopy NEGATIVE NRG Crystals detection in urine sediment by light microscopy NONE NRG Casts detection in urine sediment by light microscopy NONE NRG Mucus detection in urine sediment by light microscopy MODERATE NRG Complete urinalysis with reflex to culture NO NRG Urine drug screening test - 06/10/17 08:40 Urine phencyclidine detection by screening method NEGATIVE NEGATIVE Urine benzodiazepines detection by screening method NEGATIVE NEGATIVE Urine cocaine detection NEGATIVE NEGATIVE Urine amphetamines detection by screening method NEGATIVE NEGATIVE Urine methamphetamine detection by screening method NEGATIVE NEGATIVE Urine cannabinoids detection by screening method POSITIVE NEGATIVE Urine opiates detection by screening method NEGATIVE NEGATIVE Urine barbiturates detection NEGATIVE NEGATIVE Screening urine tricyclic antidepressants detection NEGATIVE NEGATIVE Urine methadone detection by screening method NEGATIVE NEGATIVE Urine oxycodone detection NEGATIVE NEGATIVE Urine propoxyphene detection NEGATIVE NEGATIVE Chlamydia DNA amp probe, urine - 06/10/17 08:40 Chlamydia DNA amp probe, urine Not Detected Not Detected Urine Neisseria gonorrhoeae DNA assay - 06/10/17 08:40 Gonorrhea amp DNA-urine Not Detected Not Detected Human immunodeficiency virus (HIV) type 1 and 2 antibody detection - 06/10/17 10:00 Serum HIV 1+2 antibody detection by immunoblot Non-Reactive Non-Reactive Complete blood count (CBC) with automated white blood cell (WBC) differential - 06/10/17 10:09 Blood leukocytes automated count (number/volume) 7.8 10*3/uL 4.3-11.0 Blood erythrocytes automated count (number/volume) 5.62 10*6/uL 4.35-5.85 Venous blood hemoglobin measurement (mass/volume) 16.6 g/dL 13.3-17.7 Blood hematocrit (volume fraction) 47 % 40-54 Automated erythrocyte mean corpuscular volume 84 [foz_us] 80-99 Automated erythrocyte mean corpuscular hemoglobin (mass per erythrocyte) 30 pg 25-34 Automated erythrocyte mean corpuscular hemoglobin concentration measurement ( mass/volume) 35 g/dL 32-36 Automated erythrocyte distribution width ratio 12.1 % 10.0-14.5 Automated blood platelet count (count/volume) 201 10*3/uL 130-400 Automated blood platelet mean volume measurement 11.2 [foz_us] 7.4-10.4 Automated blood neutrophils/100 leukocytes 65 % 42-75 Automated blood lymphocytes/100 leukocytes 25 % 12-44 Blood monocytes/100 leukocytes 7 % 0-12 Automated blood eosinophils/100 leukocytes 1 % 0-10 Automated blood basophils/100 leukocytes 1 % 0-10 Blood neutrophils automated count (number/volume) 5.1 10*3 1.8-7.8 Blood lymphocytes automated count (number/volume) 2.0 10*3 1.0-4.0 Blood monocytes automated count (number/volume) 0.6 10*3 0.0-1.0 Automated eosinophil count 0.1 10*3/uL 0.0-0.3 Automated blood basophil count (count/volume) 0.1 10*3/uL 0.0-0.1 Comprehensive metabolic panel - 06/10/17 10:09 Serum or plasma sodium measurement (moles/volume) 138 mmol/L 135-145 Serum or plasma potassium measurement (moles/volume) 3.9 mmol/L 3.6-5.0 Serum or plasma chloride measurement (moles/volume) 103 mmol/L 98-107 Carbon dioxide 26 mmol/L 21-32 Serum or plasma anion gap determination (moles/volume) 9 mmol/L 5-14 Serum or plasma urea nitrogen measurement (mass/volume) 18 mg/dL 7-18 Serum or plasma creatinine measurement (mass/volume) 1.02 mg/dL 0.60-1.30 Serum or plasma urea nitrogen/creatinine mass ratio 18 NRG Serum or plasma creatinine measurement with calculation of estimated glomerular filtration rate > NRG Serum or plasma glucose measurement (mass/volume) 91 mg/dL 70-105 Serum or plasma calcium measurement (mass/volume) 10.3 mg/dL 8.5-10.1 Serum or plasma total bilirubin measurement (mass/volume) 0.8 mg/dL 0.1-1.0 Serum or plasma alkaline phosphatase measurement (enzymatic activity/volume) 95 U/L 60-350 Serum or plasma aspartate aminotransferase measurement (enzymatic activity/ volume) 26 U/L 5-34 Serum or plasma alanine aminotransferase measurement (enzymatic activity/volume ) 22 U/L 0-55 Serum or plasma protein measurement (mass/volume) 7.9 g/dL 6.4-8.2 Serum or plasma albumin measurement (mass/volume) 4.9 g/dL 3.2-4.5 Serum or plasma creatine kinase measurement (enzymatic activity/volume) - 06/10 10:09 Serum or plasma creatine kinase measurement (enzymatic activity/volume) 572 U/L 30-200 Myoglobin, serum - 06/10/17 10:09 Myoglobin, serum 63.2 ng/mL 10.0-92.0 Serum or plasma thyrotropin measurement by detection limit <=0.05 miu/l (units/ volume) - 06/10/17 10:09 Serum or plasma thyrotropin measurement by detection limit <=0.05 miu/l (units/ volume) 0.54 u[iU]/mL 0.35-4.94 Erythrocyte sedimentation rate by westergren method - 06/10/17 10:09 Erythrocyte sedimentation rate by westergren method 1 mm 0-15 Serum or plasma C reactive protein measurement (mass/volume) - 06/10/17 10:09 Serum or plasma C reactive protein measurement (mass/volume) 0.01 mg /dL 0.00-0.50 Serum or plasma ethanol measurement (mass/volume) - 06/10/17 10:09 Serum or plasma ethanol measurement (mass/volume) < mg/dL <10 Complete blood count (CBC) with automated white blood cell (WBC) differential - 08/03/17 20:35 Blood leukocytes automated count (number/volume) 8.1 10*3/uL 4.3-11.0 Blood erythrocytes automated count (number/volume) 5.45 10*6/uL 4.35-5.85 Venous blood hemoglobin measurement (mass/volume) 16.3 g/dL 13.3-17.7 Blood hematocrit (volume fraction) 46 % 40-54 Automated erythrocyte mean corpuscular volume 85 [foz_us] 80-99 Automated erythrocyte mean corpuscular hemoglobin (mass per erythrocyte) 30 pg 25-34 Automated erythrocyte mean corpuscular hemoglobin concentration measurement ( mass/volume) 35 g/dL 32-36 Automated erythrocyte distribution width ratio 12.6 % 10.0-14.5 Automated blood platelet count (count/volume) 206 10*3/uL 130-400 Automated blood platelet mean volume measurement 10.4 [foz_us] 7.4-10.4 Automated blood neutrophils/100 leukocytes 52 % 42-75 Automated blood lymphocytes/100 leukocytes 40 % 12-44 Blood monocytes/100 leukocytes 7 % 0-12 Automated blood eosinophils/100 leukocytes 2 % 0-10 Automated blood basophils/100 leukocytes 1 % 0-10 Blood neutrophils automated count (number/volume) 4.2 10*3 1.8-7.8 Blood lymphocytes automated count (number/volume) 3.2 10*3 1.0-4.0 Blood monocytes automated count (number/volume) 0.5 10*3 0.0-1.0 Automated eosinophil count 0.1 10*3/uL 0.0-0.3 Automated blood basophil count (count/volume) 0.1 10*3/uL 0.0-0.1 Comprehensive metabolic panel - 08/03/17 20:35 Serum or plasma sodium measurement (moles/volume) 139 mmol/L 135-145 Serum or plasma potassium measurement (moles/volume) 3.4 mmol/L 3.6-5.0 Serum or plasma chloride measurement (moles/volume) 102 mmol/L 98-107 Carbon dioxide 23 mmol/L 21-32 Serum or plasma anion gap determination (moles/volume) 14 mmol/L 5-14 Serum or plasma urea nitrogen measurement (mass/volume) 17 mg/dL 7-18 Serum or plasma creatinine measurement (mass/volume) 0.97 mg/dL 0.60-1.30 Serum or plasma urea nitrogen/creatinine mass ratio 18 NRG Serum or plasma creatinine measurement with calculation of estimated glomerular filtration rate > NRG Serum or plasma glucose measurement (mass/volume) 105 mg/dL 70-105 Serum or plasma calcium measurement (mass/volume) 9.7 mg/dL 8.5-10.1 Serum or plasma total bilirubin measurement (mass/volume) 0.5 mg/dL 0.1-1.0 Serum or plasma alkaline phosphatase measurement (enzymatic activity/volume) 81 U/L 40-136 Serum or plasma aspartate aminotransferase measurement (enzymatic activity/ volume) 17 U/L 5-34 Serum or plasma alanine aminotransferase measurement (enzymatic activity/volume ) 15 U/L 0-55 Serum or plasma protein measurement (mass/volume) 7.7 g/dL 6.4-8.2 Serum or plasma albumin measurement (mass/volume) 4.7 g/dL 3.2-4.5 Magnesium - 08/03/17 20:35 Magnesium 2.0 mg/dL 1.8-2.4 Serum or plasma salicylates measurement (mass/volume) - 08/03/17 20:35 Serum or plasma salicylates measurement (mass/volume) < mg/dL 5.0-20.0 Serum or plasma acetaminophen measurement (mass/volume) - 08/03/17 20:35 Serum or plasma acetaminophen measurement (mass/volume) < ug/mL 10-30 Serum or plasma ethanol measurement (mass/volume) - 08/03/17 20:35 Serum or plasma ethanol measurement (mass/volume) < mg/dL <10 Serum or plasma thyrotropin measurement by detection limit <=0.05 miu/l (units/ volume) - 08/03/17 20:35 Serum or plasma thyrotropin measurement by detection limit <=0.05 miu/l (units/ volume) 3.27 u[iU]/mL 0.35-4.94 Complete urinalysis with reflex to culture - 08/03/17 21:10 Urine color determination YELLOW NRG Urine clarity determination CLEAR NRG Urine pH measurement by test strip 7 5-9 Specific gravity of urine by test strip 1.010 1.016- 1.022 Urine protein assay by test strip, semi-quantitative NEGATIVE NEGATIVE Urine glucose detection by automated test strip NEGATIVE NEGATIVE Erythrocytes detection in urine sediment by light microscopy NEGATIVE NEGATIVE Urine ketones detection by automated test strip NEGATIVE NEGATIVE Urine nitrite detection by test strip NEGATIVE NEGATIVE Urine total bilirubin detection by test strip NEGATIVE NEGATIVE Urine urobilinogen measurement by automated test strip (mass/volume) NORMAL NORMAL Urine leukocyte esterase detection by dipstick NEGATIVE NEGATIVE Automated urine sediment erythrocyte count by microscopy (number/high power field) NONE NRG Automated urine sediment leukocyte count by microscopy (number/high power field ) NONE NRG Bacteria detection in urine sediment by light microscopy NONE NRG Squamous epithelial cells detection in urine sediment by light microscopy RARE NRG Crystals detection in urine sediment by light microscopy NONE NRG Casts detection in urine sediment by light microscopy NONE NRG Mucus detection in urine sediment by light microscopy NEGATIVE NRG Complete urinalysis with reflex to culture NO NRG Urine drug screening test - 08/03/17 21:10 Urine phencyclidine detection by screening method NEGATIVE NEGATIVE Urine benzodiazepines detection by screening method NEGATIVE NEGATIVE Urine cocaine detection NEGATIVE NEGATIVE Urine amphetamines detection by screening method NEGATIVE NEGATIVE Urine methamphetamine detection by screening method NEGATIVE NEGATIVE Urine cannabinoids detection by screening method NEGATIVE NEGATIVE Urine opiates detection by screening method NEGATIVE NEGATIVE Urine barbiturates detection NEGATIVE NEGATIVE Screening urine tricyclic antidepressants detection NEGATIVE NEGATIVE Urine methadone detection by screening method NEGATIVE NEGATIVE Urine oxycodone detection NEGATIVE NEGATIVE Urine propoxyphene detection NEGATIVE NEGATIVE Complete blood count (CBC) with automated white blood cell (WBC) differential - 08/04/17 04:25 Blood leukocytes automated count (number/volume) 6.6 10*3/uL 4.3-11.0 Blood erythrocytes automated count (number/volume) 5.09 10*6/uL 4.35-5.85 Venous blood hemoglobin measurement (mass/volume) 15.2 g/dL 13.3-17.7 Blood hematocrit (volume fraction) 44 % 40-54 Automated erythrocyte mean corpuscular volume 86 [foz_us] 80-99 Automated erythrocyte mean corpuscular hemoglobin (mass per erythrocyte) 30 pg 25-34 Automated erythrocyte mean corpuscular hemoglobin concentration measurement ( mass/volume) 35 g/dL 32-36 Automated erythrocyte distribution width ratio 12.6 % 10.0-14.5 Automated blood platelet count (count/volume) 200 10*3/uL 130-400 Automated blood platelet mean volume measurement 10.6 [foz_us] 7.4-10.4 Automated blood neutrophils/100 leukocytes 41 % 42-75 Automated blood lymphocytes/100 leukocytes 48 % 12-44 Blood monocytes/100 leukocytes 8 % 0-12 Automated blood eosinophils/100 leukocytes 2 % 0-10 Automated blood basophils/100 leukocytes 1 % 0-10 Blood neutrophils automated count (number/volume) 2.7 10*3 1.8-7.8 Blood lymphocytes automated count (number/volume) 3.1 10*3 1.0-4.0 Blood monocytes automated count (number/volume) 0.5 10*3 0.0-1.0 Automated eosinophil count 0.2 10*3/uL 0.0-0.3 Automated blood basophil count (count/volume) 0.1 10*3/uL 0.0-0.1 Comprehensive metabolic panel - 08/04/17 04:25 Serum or plasma sodium measurement (moles/volume) 139 mmol/L 135-145 Serum or plasma potassium measurement (moles/volume) 4.0 mmol/L 3.6-5.0 Serum or plasma chloride measurement (moles/volume) 106 mmol/L 98-107 Carbon dioxide 24 mmol/L 21-32 Serum or plasma anion gap determination (moles/volume) 9 mmol/L 5-14 Serum or plasma urea nitrogen measurement (mass/volume) 14 mg/dL 7-18 Serum or plasma creatinine measurement (mass/volume) 0.94 mg/dL 0.60-1.30 Serum or plasma urea nitrogen/creatinine mass ratio 15 NRG Serum or plasma creatinine measurement with calculation of estimated glomerular filtration rate > NRG Serum or plasma glucose measurement (mass/volume) 91 mg/dL 70-105 Serum or plasma calcium measurement (mass/volume) 9.7 mg/dL 8.5-10.1 Serum or plasma total bilirubin measurement (mass/volume) 0.8 mg/dL 0.1-1.0 Serum or plasma alkaline phosphatase measurement (enzymatic activity/volume) 68 U/L 40-136 Serum or plasma aspartate aminotransferase measurement (enzymatic activity/ volume) 16 U/L 5-34 Serum or plasma alanine aminotransferase measurement (enzymatic activity/volume ) 13 U/L 0-55 Serum or plasma protein measurement (mass/volume) 6.9 g/dL 6.4-8.2 Serum or plasma albumin measurement (mass/volume) 4.2 g/dL 3.2-4.5 Encounters ACCT No. Visit Date/Time Discharge Status Pt. Type Provider Facility Loc./Unit Complaint [id number] 03/05/2011 08:25:00 03/05/2011 23:59:59 CLS Outpatient [id number] 07/14/2012 16:39:10 RECURRING [id number] 08/03/2017 22:48:00 08/04/2017 18:30:00 DIS Outpatient DOLORES ANGELO, WALKER [facility] ICU OVERDOSE [id number] 06/10/2017 07:13:00 06/10/2017 12:13:00 DIS Emergency TIMBO ANGELO, HELENA [facility]man[facility] ER PAIN IN GROIN [id number] 10/07/2017 17:40:00 10/07/2017 23:59:59 CLS Outpatient JUAN WALTON [facility]
== END 2018-02-02 02:22 | disposition left against medical advice (07) ==
LOC: EDUNIT# 01:28 → ER 01:29
DX: F19.10 Other psychoactive substance abuse, uncomplicated (principal)